=== PATIENT | male | born 1995 | race Caucasian/White ===

== ENCOUNTER 2019-01-18 10:25 | Emergency (ER) | payer SELFPAY ==
[2019-01-18] MEDS ORDERED: Ketorolac Tromethamine 60 MG/2 ML VIAL ONE (11:30)
[2019-01-18] MEDS ORDERED: Acetaminophen 500 MG TAB ONE (11:30)
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
== END 2019-01-18 12:03 | disposition home or self-care (01) ==
LOC: NAV ERS 10:25
DX: S13.4XXA Sprain of ligaments of cervical spine, initial encounter (principal); S33.5XXA Sprain of ligaments of lumbar spine, initial encounter; V89.2XXA Person injured in unspecified motor-vehicle accident, traffic, initial encounter
CPT/HCPCS: 72040; 72072; 72100; 96372; J1885

== ENCOUNTER 2020-01-24 15:33 | Emergency (ER) | payer OTHER, SELFPAY ==
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
== END 2020-01-24 16:53 | disposition home or self-care (01) ==
LOC: NAV ERS 15:33
DX: S16.1XXA Strain of muscle, fascia and tendon at neck level, initial encounter (principal); S80.02XA Contusion of left knee, initial encounter; S80.01XA Contusion of right knee, initial encounter; S20.212A Contusion of left front wall of thorax, initial encounter; V43.52XA Car driver injured in collision with other type car in traffic accident, initial encounter
CPT/HCPCS: 72125